=== PATIENT | male | born 1965 | race African-American/Black ===

== ENCOUNTER 2018-03-10 16:02 | Emergency (ER) | payer MEDICARE, MEDICAID ==
[~2018-03-10] VITALS: Ht 185.4 cm; Wt 99.8 kg
[2018-03-10 16:15] VITALS: BP 160/107
[2018-03-10] MEDS ORDERED: cloNIDine 0.2mg Tab ORAL ONE (16:45)
[2018-03-10 16:59] VITALS: BP 147/97
--- NOTE | 2018-03-10 17:13 | Emergency Room Report ---
History of Present Illness General Chief Complaint: General Complaint Source: Patient Present Illness HPI 52-year-old male with no significant past medical history here complaining of bilateral ear pruritus and tendinitis. He also complains of positional vertigo denying dizziness and shortness of breath and chest pain. Denies history of hypertension however patient has had pressure today. Patient mentions that his symptoms have been going on for the past 3 days has not applied any foreign body in the ears. Denies all other URI symptoms Allergies: Coded Allergies: No Known Allergies (Unverified , 03/10/18) Patient History Past Medical History: see triage record Reviewed Nursing Documentation: PMH: Agreed; PSxH: Agreed Review of Systems All Other Systems: negative except mentioned in HPI Physical Exam Vital Signs Date Time Temp Pulse Resp B/P (MAP) Pulse Ox O2 Delivery O2 Flow Rate FiO2 03/10/18 16:05 98.4 81 16 160/107 95 Room Air 98.4 Sp02 EP Interpretation: reviewed, normal General Appearance: normal inspection, well appearing, no apparent distress, alert Head: normocephalic, atraumatic Eyes: bilateral eye normal inspection, bilateral eye PERRL ENT: hearing grossly normal, normal pharynx, uvula midline, other - bilateral cerumen impaction TM not observed Neck: normal inspection, full range of motion, supple Respiratory: normal inspection, lungs clear, no rhonchi, no wheezing Cardiovascular #1: normal inspection, no edema, no murmur Cardiovascular #2: 2+ carotid (R), 2+ carotid (L) Gastrointestinal: normal inspection, soft Rectal: deferred Genitourinary: deferred Musculoskeletal: normal inspection, back normal, digits/nails normal Neurologic: normal inspection, alert, oriented x3, responsive, motor strength/ tone normal, cerebellar normal, normal gait Psychiatric: normal inspection, judgement/insight normal, memory normal Skin: normal inspection, normal color, no rash, warm/dry Lymphatic: normal inspection, no adenopathy Medical Decision Making PA Attestation all dx and tx plans were reviewed with my supervising physician Dr. Holt Diagnostic Impression: Primary Impression: Hypertensive urgency Additional Impressions: Vertigo Impacted cerumen of both ears ER Course 52-year-old male with no significant past medical history here complaining of bilateral ear pruritus and tendinitis. He also complains of positional vertigo denying dizziness and shortness of breath and chest pain. Denies history of hypertension however patient has had pressure today. Patient mentions that his symptoms have been going on for the past 3 days has not applied any foreign body in the ears. Denies all other URI symptoms Ddx considered but are not limited to Hypertensive emergency, benign positional vertigo, cerumen impaction Vital signs: are WNL, pt. is afebrile H&PE are most consistent withcerumen impaction and benign positional vertigo ORDERS: clonidine, debrox, meclizine ED INTERVENTIONS: clonidine DISCHARGE: At this time pt. is stable for d/c to home. Will provide printed patient care instructions, and any necessary prescriptions. Care plan and follow up instructions have been discussed with the patient prior to discharge. follow-up with a primary care provider for daily assessment of blood pressure, follow up with ENT for tinnitus use eardrops as directed follow with ENT for ear lavage Last Vital Signs Date Time Temp Pulse Resp B/P (MAP) Pulse Ox O2 Delivery O2 Flow Rate FiO2 03/10/18 16:59 147/97 03/10/18 16:15 98.4 16 95 Room Air 98.4 03/10/18 16:05 81 Disposition: HOME, SELF-CARE Condition: Stable Scripts Meclizine Hcl* (MECLIZINE*) 25 Mg Tablet 25 MG ORAL DAILY, #20 TAB Prov: Sanket Merino 03/10/18 Carbamide Peroxide (DEBROX) 15 Ml Drops 10 DROP BOTH EARS TWICE A DAY for 4 Days, #100 ML 0 Refills Prov: Sanket Merino 03/10/18 Referrals: NOT CHOSEN IPA/,REFERRING (PCP) Patient Instructions: Cerumen Impaction, Hypertension, [id number], Vertigo, [id number] Additional Instructions: due to high blood pressure, and it was administered blood pressure was controlled after follow with the primary care provider for daily management of hypertension patient was given clonidine in the emergency room today. Use the drops as directed to lose racks take the medication for vertigo as direct as follow up with the primary care provider if symptoms continue ear lavage needed after debrox losens the cerumen Sanket Merino Mar 10, 2018 17:13
[2018-03-10] MEDS ORDERED: MECLIZINE HCL25 MG ORAL (17:15)
[2018-03-10] MEDS ORDERED: DEBROX15 M1 BOTH EARS (17:15)
[2018-03-10 17:27] VITALS: BP 147/97
== END 2018-03-10 17:27 | disposition home or self-care (01) ==
LOC: EMR 17:00
DX: I16.0 Hypertensive urgency (principal); H61.23 Impacted cerumen, bilateral; R42 Dizziness and giddiness
CPT/HCPCS: 99283